=== PATIENT | female | born 1950 ===

== ENCOUNTER 2017-06-08 11:30 | Day surgery (SDC) | payer BC ==
[~2017-06-08 11:30] MED LIST: Acetaminophen TAB* 325 MG PO PRN; Buffered Lidocaine 0.9% SYRIN* 5 ML/SYR SYRINGE INTRADERM ONE
[2017-06-08] MEDS ORDERED: Midazolam* 1 MG/ML 2 ML VIAL (2 MG) ONE (13:13)
[2017-06-08] MEDS ORDERED: fentaNYL* 50 MCG/ML 2 ML VIAL (100 MCG VIAL) ONE (13:13)
[2017-06-08 14:20] VITALS: BP 119/77
[2017-06-08] MEDS ORDERED: Flurbiprofen 0.03% OPTH.SOL* 2.5 ML BTL ONE (14:26)
[2017-06-08] MEDS ORDERED: Lidocaine 1% MPF* 2 ML VIAL ONE (14:26)
[2017-06-08] MEDS ORDERED: Cyclopentolate 1% OPTH.SOL* 2 ML BTL ONE (14:26)
[2017-06-08] MEDS ORDERED: Tetracaine 0.5% OPTH.SOL 4 ML* 1 DROP BTL ONE (14:26)
[2017-06-08] MEDS ORDERED: Tropicamide 1% OPTH.SOL* BTL ONE (14:26)
[2017-06-08] MEDS ORDERED: Neomycin/Polymy/Dex OPHTH.OIN* 3.5 GM ONE (14:26)
[2017-06-08] MEDS ORDERED: Buffered Lidocaine 0.9% SYRIN* 5 ML/SYR SYRINGE ONE (14:26)
[2017-06-08] MEDS ORDERED: Phenylephrine 2.5% OPTH.SOL* 2 ML BTL ONE (14:26)
[2017-06-08] MEDS ORDERED: Phenylephr/Ketorolac 1%/0.3% OPH DROP BTL ONE (14:43)
--- NOTE | 2017-06-08 16:02 | OP ---
DATE OF OPERATION/DATE OF DICTATION: 06/08/2017 - LOCATED WITHIN [facility] DATE OF : 1950. SURGEON: Dr. Kevyn Leonardo. QUILL FIXER: None. ANESTHESIA: Topical with intravenous sedation. PRE-OP DIAGNOSIS: Cataract, left eye. POST-OP DIAGNOSIS: Cataract, left eye. OPERATIVE PROCEDURE: Phacoemulsification and cataract extraction with posterior chamber intraocular lens implant, left eye. COMPLICATIONS: None. BLOOD LOSS: None. DESCRIPTION OF PROCEDURE: The patient was brought to the operating room and received a small amount of intravenous sedation. A drop of Tetracaine was placed in her left eye. She was prepped and draped in the usual sterile fashion for ophthalmic surgery and attention was directed to the left eye where a speculum was placed. A paracentesis was created at the 5 o'clock position and 0.1 cc of 1 percent preservative-free Lidocaine was injected into the anterior chamber followed by DisCoVisc. The eye was digitally stabilized while a 2.75 mm keratome was used to create a triplanar clear corneal incision at the 3 o'clock position. A continuous curvilinear capsulorrhexis was created with a cystotome and Utrata forceps. BSS on a cannula was used to hydrodissect the lens from the capsule. Phacoemulsification was performed in a divide-and- conquer technique to create four fragments which were removed. Residual cortical material was removed with irrigation and aspiration. DisCoVisc was used to inflate the capsular bag and an AUOOTO 25.0 diopter lens was folded and inserted into the capsular bag. DisCoVisc was removed using irrigation and aspiration. BSS on a cannula was used to hydrate the corneal stroma and seal the wound. At the end of the case the pupil was round and the lens was centered. The eye was of normal pressure and the wound was water tight. The speculum was removed and topical Maxitrol ointment was placed on the surface of the eye. The eye was closed, patched and shielded and the patient was sent to the recovery room in stable condition with post operative instructions and follow-up appointment given. [id number]/[facility] #: [id number] MTDD
== END 2017-06-08 14:20 | disposition home or self-care (01) ==
LOC: OREAST 11:30
PROVIDERS: ATTEND Ophthalmology
DX: H25.12 Age-related nuclear cataract, left eye (principal); I10 Essential (primary) hypertension; E78.5 Hyperlipidemia, unspecified; Z87.891 Personal history of nicotine dependence; M19.90 Unspecified osteoarthritis, unspecified site; Z86.73 Personal history of transient ischemic attack (TIA), and cerebral infarction without residual deficits
CPT/HCPCS: A9270-GY; C9447; J2250; J3010; V2632

== ENCOUNTER 2017-06-15 09:59 | Day surgery (SDC) | payer BC ==
[~2017-06-15 09:59] MED LIST changes: +Buffered Lidocaine 0.9% SYRIN* 5 ML/SYR SYRINGE ONE; +Cyclopentolate 1% OPTH.SOL* 2 ML BTL ONE; +Flurbiprofen 0.03% OPTH.SOL* 2.5 ML BTL ONE; +Lidocaine 1% MPF* 2 ML VIAL ONE; +Neomycin/Polymy/Dex OPHTH.OIN* 3.5 GM ONE; +Phenylephr/Ketorolac 1%/0.3% OPH DROP BTL ONE; +Phenylephrine 2.5% OPTH.SOL* 2 ML BTL ONE; +Tetracaine 0.5% OPTH.SOL 4 ML* 1 DROP BTL ONE; +Tropicamide 1% OPTH.SOL* BTL ONE
[2017-06-15] MEDS ORDERED: Midazolam* 1 MG/ML 2 ML VIAL (2 MG) ONE (10:17)
[2017-06-15] MEDS ORDERED: fentaNYL* 50 MCG/ML 2 ML VIAL (100 MCG VIAL) ONE (10:17)
[2017-06-15] MEDS ORDERED: Buffered Lidocaine 0.9% SYRIN* 5 ML/SYR SYRINGE ONE (10:19)
[2017-06-15 11:12] VITALS: BP 137/91
--- NOTE | 2017-06-16 05:51 | OP ---
DATE OF OPERATION: 06/15/17 [facility] DATE OF : 52 SURGEON: Dr. Kevyn Leonardo. CREDIT RATING CHECKER: None. ANESTHESIOLOGIST: Jett Son MD ANESTHESIA: Topical eye drops, but no intravenous sedation was given. PRE-OP DIAGNOSIS: Cataract with small pupil, right eye. POST-OP DIAGNOSIS: Cataract with small pupil, right eye. OPERATIVE PROCEDURE: Phacoemulsification and cataract extraction with posterior chamber intraocular lens implant, right eye. COMPLICATIONS: None. BLOOD LOSS: None. DESCRIPTION OF PROCEDURE: The patient was seen preoperatively in the holding area and she requested that she receive no intravenous sedation for the surgery. She was brought to the operating room and given a drop of Tetracaine in her right eye. The patient was prepped and draped in the usual sterile fashion for ophthalmic surgery and attention was directed to the right eye where a speculum was placed. The pupil was noted to be approximately 3.5 mm in diameter. Omidria was added to the irrigating solution. A paracentesis was created at the 11 o'clock position. A 0.1 cc of 1% preservative-free lidocaine was injected into the anterior chamber followed by DisCoVisc. A triplanar clear corneal incision was created at the 9 o'clock position using a 2.75 mm keratome. The pupil at this point measured approximately 3.75 mm. A continuous curvilinear capsulorrhexis was created with a cystotome and Utrata forceps. DisCoVisc was used to move the pupil in sequential quadrants as the paracentesis was created to attempt to make the paracentesis approximately 4 mm. BSS on a cannula was then used to hydrodissect the lens from the capsule. Phacoemulsification was performed in a [id number] technique to create 4 fragments, which were removed. Residual cortical material was removed with irrigation and aspiration. The Omidria succeeded in bringing the pupils to approximately 4 mm. DisCoVisc was used to inflate the capsular bag. An AU00T0 25.5 diopter lens was folded and inserted into the capsular bag. Residual DisCoVisc was removed using irrigation and aspiration. BSS on a cannula was used to hydrate the cornea and seal the wound. At the end of the case, the pupil was round. The lens was centered and stable. The eye pressure appeared normal and the wound was watertight. Topical Maxitrol ointment was placed on the surface of the eye. The speculum was removed. The eye was closed, patched , and shielded, and the patient was sent to the recovery room in stable condition, with postoperative instructions and followup appointment given. [id number]/[id number] #: [id number] VINCENT
== END 2017-06-15 11:13 | disposition home or self-care (01) ==
LOC: OREAST 09:59
PROVIDERS: ATTEND Ophthalmology
DX: H25.11 Age-related nuclear cataract, right eye (principal); H57.03 Miosis; I10 Essential (primary) hypertension; E78.00 Pure hypercholesterolemia, unspecified; Z86.73 Personal history of transient ischemic attack (TIA), and cerebral infarction without residual deficits; M85.80 Other specified disorders of bone density and structure, unspecified site; Z79.82 Long term (current) use of aspirin; Z88.8 Allergy status to other drugs, medicaments and biological substances
CPT/HCPCS: A9270-GY; C9447; J2250; J3010; V2632

== ENCOUNTER 2022-04-20 22:17 | Inpatient (IN) ==
[2022-04-20] MEDS ORDERED: niCARdipine 0.1MG/ML IVPREMIX 20 MG/200 ML BAG IV SCH (23:00)
[2022-04-20] MEDS ORDERED: Acetaminophen IV 1 GM/100ML 100 ML IV PRN (23:02)
[2022-04-21] MEDS ORDERED: Lactated Ringers 1000 ml BAG 1,000 ML IV ONE (00:30)
[2022-04-21 00:38] LABS: ABS Lymphocytes 0.6 10^3/ul (1.0-4.8); ABS Monocytes 0.2 10^3/ul (0-0.8); ABS Neutrophils 9.4 10^3/ul (1.5-7.7); Hematocrit 45 % (35-47); Hemoglobin 14.9 g/dL (12.0-16.0); Mean Corpuscular HGB Conc 33 g/dL (31-36); Mean Corpuscular Hemoglobin 31 pg (27-31); Mean Corpuscular Volume 93 fL (80-97); Mean Platelet Volume 8.2 fL (7.4-10.4); Platelet Count 175 10^3/uL (150-450); Red Blood Count 4.87 10^6 /uL (3.70-4.87); Red Cell Distribution Width 13 % (10-15); White Blood Count 10.3 10^3/uL (3.5-10.8)
[2022-04-21 01:46] LABS: ALT 24 U/L (7-52); AST 31 U/L (13-39); Albumin 4.7 g/dL (3.2-5.2); Albumin/Globulin Ratio 1.5 (1-3); Alkaline Phosphatase 80 U/L (35-149); Anion Gap 13 mmol/L (2-11); Blood Urea Nitrogen 14 mg/dL (6-24); CO2 Carbon Dioxide 26 mmol/L (22-32); Calcium 9.5 mg/dL (8.6-10.3); Chloride 100 mmol/L (101-111); Cholesterol 192 mg/dL; Globulin 3.1 g/dL (2-4); Glucose 154 mg/dL (70-100); HDL Cholesterol 88.5 mg/dL; LDL Cholesterol 86 mg/dL; Sodium 139 mmol/L (135-145); Total Protein 7.8 g/dL (6.4-8.9); Triglycerides 88 mg/dL; eGFR CKD-EPI 72.2 (>60)
[2022-04-21 07:59] LABS: Phosphorus 2.8 mg/dL (2.5-5.0)
[2022-04-21] MEDS ORDERED: Acyclovir IV 500 MG in NS 0.9% 100 ml BAG 100 ML IVPB SCH (08:00)
[2022-04-21 09:16] LABS: Salicylate < 2.50 mg/dL (<30)
[2022-04-21 10:29] LABS: Prolactin 7.8 ng/mL (1.0-25.0)
[2022-04-21] MEDS ORDERED: Gadoteridol (CONTRAST) 279.3 MG/ML 10 ML IV ONE (15:19)
[2022-04-21 17:43] LABS: Urine Appearance Cloudy; Urine Bilirubin Negative (Negative); Urine Blood 3+ (Negative); Urine Color Yellow; Urine Glucose Negative (Negative); Urine Ketones Negative (Negative); Urine Nitrite Negative (Negative); Urine Protein 1+(30 mg/dL) (Negative); Urine Specific Gravity 1.015 (1.002-1.030); Urine Urobilinogen Negative (Negative)
[2022-04-21 17:48] LABS: Urine Bacteria 1+ (Absent); Urine Red Blood Cell 3+(>10/hpf) (Absent); Urine Squamous Epithelial Cell Present (Absent); Urine White Blood Cell 3+(>20/hpf) (Absent)
[2022-04-21] MEDS: cefTRIAXone 1 gm/50 mL D5W 1 GM/50 ML BAG IV SCH (19:35)
[2022-04-21] MEDS: Enoxaparin 40 MG/0.4 ML SYR SUBCUT SCH ×2 (20:42)
[2022-04-22 05:09] LABS: ABS Basophils 0.1 10^3/ul (0-0.2); ABS Eosinophils 0.2 10^3/ul (0-0.6); ABS Monocytes 0.6 10^3/ul (0-0.8); ABS Neutrophils 2.6 10^3/ul (1.5-7.7); Eosinophil % 3.5 %; Hematocrit 39 % (35-47); Hemoglobin 13.1 g/dL (12.0-16.0); Lymphocyte % 37.7 %; Mean Corpuscular HGB Conc 33 g/dL (31-36); Mean Corpuscular Hemoglobin 31 pg (27-31); Mean Corpuscular Volume 93 fL (80-97); Mean Platelet Volume 8.1 fL (7.4-10.4); Platelet Count 150 10^3/uL (150-450); Red Blood Count 4.22 10^6 /uL (3.70-4.87); Red Cell Distribution Width 13 % (10-15); White Blood Count 5.4 10^3/uL (3.5-10.8)
[2022-04-22 05:39] LABS: Calcium 9.1 mg/dL (8.6-10.3); Potassium 3.8 mmol/L (3.5-5.0); eGFR CKD-EPI 71.2 (>60)
[2022-04-22] MEDS ORDERED: Hemorrhoidal OINT 1 TUBE PR PRN (09:04)
[2022-04-22] MEDS: cefTRIAXone 1 gm/50 mL D5W 1 GM/50 ML BAG IV SCH (18:05)
[2022-04-22 19:18] LABS: Phospholipid Ab IgG < 9.4 GPL; Phospholipid Ab IgM, S < 9.4 MPL
[2022-04-22] MEDS: Enoxaparin 40 MG/0.4 ML SYR SUBCUT SCH (20:22)
[2022-04-23 18:16] VITALS: BP 138/88
== END 2022-04-23 18:00 | disposition home or self-care (01) | DRG 103 ==
LOC: MERGE 22:18 → SUATTDRO 22:18 → ICU 22:18 → MEDTELE 04-22 14:51
PROVIDERS: ADMIT Internal Medicine; ATTEND Internal Medicine

== ENCOUNTER 2022-05-06 21:32 | Observation (INO) ==
[2022-05-07 01:11] LABS: ABS Eosinophils 0.1 10^3/ul (0-0.6); ABS Lymphocytes 1.1 10^3/ul (1.0-4.8); ABS Monocytes 0.5 10^3/ul (0-0.8); ABS Neutrophils 2.4 10^3/ul (1.5-7.7); Eosinophil % 2.8 %; Hematocrit 26 % (35-47); Hemoglobin 8.4 g/dL (12.0-16.0); Lymphocyte % 26.2 %; Mean Corpuscular HGB Conc 33 g/dL (31-36); Mean Corpuscular Hemoglobin 31 pg (27-31); Mean Corpuscular Volume 94 fL (80-97); Mean Platelet Volume 8.5 fL (7.4-10.4); Nucleated Red Blood Cells % 0.1; Platelet Count 131 10^3/uL (150-450); Red Blood Count 2.72 10^6 /uL (3.70-4.87); Red Cell Distribution Width 13 % (10-15); White Blood Count 4.1 10^3/uL (3.5-10.8)
[2022-05-07 01:17] LABS: INR 0.97 (0.86-1.15)
[2022-05-07 02:00] LABS: ALT 11 U/L (7-52); AST 21 U/L (13-39); Albumin 3.3 g/dL (3.2-5.2); Albumin/Globulin Ratio 1.7 (1-3); Alkaline Phosphatase 41 U/L (35-149); Anion Gap 6 mmol/L (2-11); Blood Urea Nitrogen 13 mg/dL (6-24); CO2 Carbon Dioxide 26 mmol/L (22-32); Calcium 8.1 mg/dL (8.6-10.3); Chloride 108 mmol/L (101-111); Glucose 111 mg/dL (70-100); Potassium 4.1 mmol/L (3.5-5.0); Sodium 140 mmol/L (135-145); Total Protein 5.3 g/dL (6.4-8.9); eGFR CKD-EPI 90.8 (>60)
[2022-05-07] MEDS ORDERED: oxyCODONE/Acetamin 5/325 mg TAB PO PRN (03:27)
[2022-05-07 04:58] LABS: % Iron Saturation 19 % (15-55); Iron 58 ug/dL (50-212); Total Iron Binding Capacity 309 mcg/dL (250-450); Transferrin 221 mg/dL (203-362); Unsaturated Iron Binding 251 ug/dL
[2022-05-07 05:18] LABS: Ferritin 127.2 ng/mL (11-307)
[2022-05-07 05:22] LABS: Folate > 20.00 ng/mL (5.90-24.80)
[2022-05-07] MEDS ORDERED: Enoxaparin 40 MG/0.4 ML SYR SUBCUT SCH (06:00)
[2022-05-07] MEDS: Amoxicillin/Clavul 875/125 TAB (Augmentin 875 tab) PO SCH ×3 (10:13→21:19)
[2022-05-07] MEDS ORDERED: Iohexol 350 (CONTRAST) 500 ML MDV IV ONE (14:17)
[2022-05-07] MEDS ORDERED: levETIRAcetam 1000MG IVPREMIX 1,000 MG/100 ML BAG IVPB ONE (14:47)
[2022-05-07] MEDS ORDERED: levETIRAcetam 500 MG IVPREMIX 500 MG/100 ML BAG IV SCH (21:00)
[2022-05-07 22:43] LABS: Urine Appearance Clear; Urine Bilirubin Negative (Negative); Urine Blood Negative (Negative); Urine Color Yellow; Urine Glucose Negative (Negative); Urine Ketones Negative (Negative); Urine Nitrite Negative (Negative); Urine Protein Negative (Negative); Urine Specific Gravity 1.035 (1.002-1.030); Urine Urobilinogen Negative (Negative)
[2022-05-07 22:59] LABS: Urine Bacteria Absent (Absent); Urine Red Blood Cell Absent (Absent); Urine Squamous Epithelial Cell Present (Absent); Urine White Blood Cell Trace(0-5/hpf) (Absent)
[2022-05-08 06:40] LABS: Hematocrit 25 % (35-47); Hemoglobin 8.3 g/dL (12.0-16.0); Mean Corpuscular HGB Conc 34 g/dL (31-36); Mean Corpuscular Hemoglobin 32 pg (27-31); Mean Corpuscular Volume 95 fL (80-97); Mean Platelet Volume 8.3 fL (7.4-10.4); Platelet Count 149 10^3/uL (150-450); Red Blood Count 2.59 10^6 /uL (3.70-4.87); Red Cell Distribution Width 13 % (10-15); White Blood Count 2.7 10^3/uL (3.5-10.8)
[2022-05-08 07:00] LABS: Albumin 3.4 g/dL (3.2-5.2); Albumin/Globulin Ratio 1.7 (1-3); Calcium 8.8 mg/dL (8.6-10.3); Potassium 4.2 mmol/L (3.5-5.0); Total Bilirubin 0.3 mg/dL (0.2-1.0); Total Protein 5.4 g/dL (6.4-8.9); eGFR CKD-EPI 93.1 (>60)
[2022-05-08] MEDS: Amoxicillin/Clavul 875/125 TAB (Augmentin 875 tab) PO SCH ×2 (10:16→20:58)
[2022-05-08] MEDS ORDERED: Senna TAB 8.6 mg TAB PO ONE (14:54)
[2022-05-08] MEDS ORDERED: Magnesium Hydroxide LIQ 30 ML UDC PO ONE (14:54)
[2022-05-09 06:29] LABS: ABS Eosinophils 0.2 10^3/ul (0-0.6); ABS Monocytes 0.5 10^3/ul (0-0.8); ABS Neutrophils 1.8 10^3/ul (1.5-7.7); Eosinophil % 5.4 %; Hematocrit 26 % (35-47); Hemoglobin 8.6 g/dL (12.0-16.0); Lymphocyte % 28.9 %; Mean Corpuscular HGB Conc 34 g/dL (31-36); Mean Corpuscular Hemoglobin 32 pg (27-31); Mean Corpuscular Volume 95 fL (80-97); Mean Platelet Volume 7.9 fL (7.4-10.4); Nucleated Red Blood Cells % 0.2; Platelet Count 168 10^3/uL (150-450); Red Blood Count 2.72 10^6 /uL (3.70-4.87); Red Cell Distribution Width 13 % (10-15); White Blood Count 3.5 10^3/uL (3.5-10.8)
[2022-05-09] MEDS: Amoxicillin/Clavul 875/125 TAB (Augmentin 875 tab) PO SCH (08:03)
[2022-05-09 12:17] VITALS: BP 131/84
== END 2022-05-10 00:48 | disposition home or self-care (01) ==
LOC: MEDTELE → SUATTDRO 23:37
PROVIDERS: ADMIT Internal Medicine; ATTEND Internal Medicine